=== PATIENT | male | born 1955 | race Caucasian/White ===

== ENCOUNTER → 2024-06-06 | Day surgery (SDC) | payer OTHER ==
[~2024-06-06] VITALS: Ht 195.5 cm; Wt 96.2 kg
[~2024-06-06] MED LIST: Balanced Salt Solution 500 ML OPH SCH; CALCIUM CITRAT250 M1 PO; COREG3.125 MG PO; DIGITEK125 MCG PO; ECOTRIN325 M1 PO; Labetalol Hydrochloride 20 MG/4 ML SYR IV ONE; MGO400 MG PO; Midazolam Hydrochloride 2 MG/2 ML VIAL IV ONE; OFLOXACIN 0.3% 5 ML BOTTLE ONE; OFLOXACIN 0.3% 5 ML BOTTLE OPH SCH; PHENYLEPHRINE/KETOROLAC 4 ML in Balanced Salt Solution 500 ML OPH SCH; PLAQUENIL200 MG PO; POVIDONE IODINE 5% OPHTHALMIC 30 ML BOTTLE OPH ONE; POVIDONE IODINE 5% OPHTHALMIC 30 ML BOTTLE OPH SCH; PRILOSEC20 M1 PO; Phenylephrine Hydrochloride 2 ML BOT OPH ONE; Phenylephrine Hydrochloride 2 ML BOT OPH SCH; Proparacaine Hydrochloride 15 ML BOT OPH ONE; Proparacaine Hydrochloride 15 ML BOT OPH SCH; SODIUM CHLORI1000 M5 MC; SODIUM CHLORIDE 0.9% 1,000 ML IV SCH; TETRACAINE HCL 10 DROP BOT OPH SCH; TROPICAMIDE 3 ML BOT OPH ONE; TROPICAMIDE 3 ML BOT OPH SCH; Tetracaine Hydrochloride 0.5% 4 ML BOT OPH ONE; Tetracaine Hydrochloride 0.5% 4 ML BOT OPH SCH; prednisoLONE acetate 1% OPHTHALMIC 5 ML BOT OPH ONE; prednisoLONE acetate 1% OPHTHALMIC 5 ML BOT OPH SCH
[2024-06-06 14:30] VITALS: BP 168/78
[2024-06-06 16:30] VITALS: BP 169/97
[2024-06-06 16:45] VITALS: BP 191/113
[2024-06-06 17:00] VITALS: BP 149/86
[2024-06-06 17:10] VITALS: BP 139/81
== END | disposition home or self-care (01) ==
LOC: SDC 06-04 13:15
PROVIDERS: ATTEND Ophthalmology
DX: H25.12 Age-related nuclear cataract, left eye (principal); I10 Essential (primary) hypertension; I48.91 Unspecified atrial fibrillation; K21.9 Gastro-esophageal reflux disease without esophagitis; F10.90 Alcohol use, unspecified, uncomplicated; Z88.0 Allergy status to penicillin; Z79.82 Long term (current) use of aspirin; Z79.899 Other long term (current) drug therapy; Z98.890 Other specified postprocedural states